=== PATIENT | female | born 1970 | race Caucasian/White ===

== ENCOUNTER 2017-03-13 06:09 | Outpatient (CLI) | payer OTHER ==
--- NOTE | 2017-03-13 11:05 | Cat Scan Report ---
CT PELVIS WITH CONTRAST INDICATION: Persistent left ovarian cyst. COMPARISON: None similar. FINDINGS: Axial, sagittal and coronal CT reconstructions through the pelvis performed following IV contrast. Few left adnexal/ovarian cysts noted, the largest 5.3 cm, axial image 77, series 2 with the next largest approximately 2.4 cm, image 69 situated more medially. Few other small bilateral ovarian follicular cysts also noted. Uterus, urinary bladder and the rectosigmoid within normal limits. Few pelvic phleboliths. No free fluid or significant adenopathy. Normal appendix incidentally noted in the right lower quadrant as also small fat-containing umbilical hernia with a transverse neck of 7 mm. Moderate sclerosis along iliac aspect of bilateral SI joints. Mild lower lumbar facet arthropathy. CONCLUSION: Left adnexal/ovarian cysts and various other incidental findings, as above. Please correlate. Thank you for the opportunity to participate in this patient's care.
== END 2017-03-13 06:10 | disposition home or self-care (01) ==
LOC: CT 06:09
PROVIDERS: ATTEND Obstetrics & Gynecology
DX: N83.02 Follicular cyst of left ovary (principal); N83.01 Follicular cyst of right ovary; K42.9 Umbilical hernia without obstruction or gangrene; I87.8 Other specified disorders of veins; M12.88 Other specific arthropathies, not elsewhere classified, other specified site
CPT/HCPCS: 72193; Q9967

== ENCOUNTER 2018-07-03 09:55 | Outpatient (CLI) | payer OTHER ==
[2018-07-03 10:53] LABS: Hematocrit 40.7 % (30.3-42.9); Hemoglobin 13.8 gm/dl (10.1-14.3); Mean Corpuscular HGB Conc 34 % (30-34); Mean Corpuscular Volume 95 fl (79-97); Platelet Count 252 K/mm3 (140-440); Red Blood Count 4.31 M/mm3 (3.65-5.03); Red Cell Distribution Width 13.5 % (13.2-15.2)
[2018-07-03 11:15] LABS: Alanine Aminotransferase 18 units/L (7-56); Albumin 4.8 g/dL (3.9-5); BUN/Creatinine Ratio 30; Blood Urea Nitrogen 9 mg/dL (7-17); Calcium 9.2 mg/dL (8.4-10.2); Chol/HDL Ratio 2.34 %; HDL Cholesterol 63 mg/dL (40-59); Hemolysis Index 26; LDL Cholesterol,Direct 90 mg/dL (50-130)
== END 2018-07-03 09:56 | disposition home or self-care (01) ==
LOC: LAB 09:55
PROVIDERS: ATTEND Internal Medicine
DX: Z00.01 Encounter for general adult medical examination with abnormal findings (principal); R73.9 Hyperglycemia, unspecified
CPT/HCPCS: 36415; 80053; 80061; 82306; 82607; 83036; 84443; 85027

== ENCOUNTER 2019-01-11 09:58 | Outpatient (CLI) | payer OTHER ==
[2019-01-11 11:34] LABS: Chol/HDL Ratio 2.8 %
[2019-01-14 09:01] LABS: Vitamin D, 25-OH, D2 <4 ng/mL
== END 2019-01-11 09:59 | disposition home or self-care (01) ==
LOC: LAB 09:58
PROVIDERS: ATTEND Internal Medicine
DX: E55.9 Vitamin D deficiency, unspecified (principal); R73.9 Hyperglycemia, unspecified; E66.9 Obesity, unspecified
CPT/HCPCS: 36415; 80061; 82306; 83036

== ENCOUNTER 2019-04-30 09:21 | Outpatient (CLI) | payer OTHER ==
[2019-05-04 11:54] LABS: Vitamin D, 25-OH, D2 27 ng/mL
== END 2019-04-30 09:22 | disposition home or self-care (01) ==
LOC: LAB 09:21
PROVIDERS: ATTEND Internal Medicine
DX: E55.9 Vitamin D deficiency, unspecified (principal); R73.03 Prediabetes
CPT/HCPCS: 36415; 82306; 83036

== ENCOUNTER 2021-04-11 10:23 | Outpatient (CLI) | payer OTHER ==
--- NOTE | 2021-04-11 11:32 | XRay Report ---
LUMBOSACRAL SPINE 3 VIEWS INDICATION: LOW BACK PAIN. COMPARISON: None. IMPRESSION: Normal alignment. Mild disc space narrowing is suspected at L5-S1. The remaining disc l evels are within normal limits. Moderate hypertrophic facet arthropathy is identified at L4-5 and L5- S1. The SI joints appear unremarkable. No acute osseous or soft tissue abnormality. Signer Name: Beto Katz Jr, MD Signed: 04/11/2021 11:27 AM Workstation Name: [id number]
== END 2021-04-11 10:24 | disposition home or self-care (01) ==
LOC: XRAY 10:23
PROVIDERS: ATTEND Internal Medicine
DX: M54.50 Low back pain, unspecified (principal)
CPT/HCPCS: 72100